=== PATIENT | female | born 1940 | race Caucasian/White ===

== ENCOUNTER → 2017-10-23 | Outpatient (CLI) | payer OTHER ==
[~2017-10-23] MED LIST: ANTIVERT12.5 MG PO; APAP500 PO; ASPIR 8181 MG PO; ATIVAN1 M1 PO; ATORVASTATIN CA10 MG; ATORVASTATIN CA10 MG PO; BACTRIM DS TAB1 EACH PO; BUSPIRONE; CELEXA20 MG PO; CELEXA40 MG OR; CELEXA40 MG PO; ELMIRON 100 MG100 M1 PO; HYDROXYZINE HCL10 M1 PO; HYDROXYZINE HCL25 M1; HYDROXYZINE HCL25 M1 OR; IBUPROFEN 200200 M1 PO; IRON325; IRON325 PO; LAMICTAL XR200 MG PO; LAMICTAL100 MG PO; LAMICTAL150 MG PO; LAMICTAL200 MG PO; LAMOTRIGINE150 MG OR; LIPITOR OR; LOSARTAN-HCTZ1 EAC2 PO; MOBIC OR; MOBIC15 MG PO; NAMENDA 10 MG T10 MG PO; NORCO 5-325 TA1 EACH PO; PRAMIPEXOLE D0.25 MG PO; PROAIR HFA8.5 GM PO; REQUIP1 MG PO; TRILEPTAL150 MG OR; TUMS PO; VIMPAT50 MG; ZIAC 5-6.25 MG1 EACH; ZONEGRAN100 MG OR; ZONEGRAN100 MG PO; ZONISAMIDE 100100 M1 PO; [UNRECOGNIZED DRUG - OTHER]
== END ==
LOC: ULTRA 01:36 → RAD 01:36 → ULTRA 09:46
DX: Z12.31 Encounter for screening mammogram for malignant neoplasm of breast (principal); N63.20 Unspecified lump in the left breast, unspecified quadrant; I10 Essential (primary) hypertension

== ENCOUNTER 2018-10-30 09:05 | Emergency (ER) | payer OTHER ==
[~2018-10-30] VITALS: Ht 167.6 cm; Wt 61.7 kg
[~2018-10-30 09:05] MED LIST changes: +MOBIC7.5 MG PO
[2018-10-30 11:39] VITALS: BP 157/41
== END 2018-10-30 12:10 | disposition home or self-care (01) ==
LOC: ER 09:05
DX: S16.1XXA Strain of muscle, fascia and tendon at neck level, initial encounter (principal); S00.03XA Contusion of scalp, initial encounter; M19.90 Unspecified osteoarthritis, unspecified site; G25.81 Restless legs syndrome; I10 Essential (primary) hypertension; Z86.73 Personal history of transient ischemic attack (TIA), and cerebral infarction without residual deficits; Z98.890 Other specified postprocedural states; Z88.0 Allergy status to penicillin; Z90.710 Acquired absence of both cervix and uterus; Z96.651 Presence of right artificial knee joint; Z96.642 Presence of left artificial hip joint; W18.39XA Other fall on same level, initial encounter; Y92.129 Unspecified place in nursing home as the place of occurrence of the external cause; Y93.89 Activity, other specified; Y99.8 Other external cause status

== ENCOUNTER 2020-05-24 10:09 | Emergency (ER) | payer OTHER ==
[~2020-05-24] VITALS: Ht 160 cm; Wt 53.1 kg
[2020-05-24] MEDS ORDERED: ARICEPT10 M1 PO (10:17)
[2020-05-24] MEDS ORDERED: ASA81BEC PO (10:17)
[2020-05-24] MEDS ORDERED: CATAPRES0.1 MG PO (10:18)
[2020-05-24] MEDS ORDERED: DORYX MPC120 MG PO (10:19)
[2020-05-24] MEDS ORDERED: LEXAPRO20 MG PO (10:19)
[2020-05-24] MEDS ORDERED: ESTRACE42.5 GM VAG (10:21)
[2020-05-24] MEDS ORDERED: FAMOTIDINE 40 M40 M1 PO (10:21)
[2020-05-24] MEDS ORDERED: REQUIP 0.25 M0.25 M1 PO (10:22)
[2020-05-24] MEDS ORDERED: MIRAPEX0.5 MG PO (10:22)
[2020-05-24] MEDS ORDERED: ACETAMINOPHEN500 M1 PO (10:23)
[2020-05-24] MEDS ORDERED: ZONEGRAN100 MG PO (10:24)
[2020-05-24] MEDS ORDERED: CALCIUM CARBON500 MG PO (10:25)
[2020-05-24] MEDS ORDERED: BUSPIRONE HCL5 MG PO (10:26)
[2020-05-24] MEDS ORDERED: BEANO300 UNIT PO (10:27)
[2020-05-24] MEDS ORDERED: REFRESH PLUS1 EACH OPHTHALMIC (10:27)
--- NOTE | 2020-05-24 10:33 | EKG ---
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 : 1940 Requested By: Destin Paulson Order Number: [id number] MD: Mandeep Miner Measurements Intervals [place] Rate: 57 P: 60 DE: 176 QRS: -14 QRSD: 78 T: 51 QT: 441 QTc: 430 Interpretive Statements Sinus rhythm Probable anteroseptal infarct, old Compared to ECG 01/04/2018 13:50:57 Myocardial infarct finding now present Left-axis deviation no longer present Electronically Signed On 05-24-2020 10:33:10 LEHR ATTENDANT by Mandeep Miner [email or web address] <ELECTRONICALLY SIGNED> By: Mandeep Miner MD, [facility] 05/24/20 1033 1025 1025 Mandeep Miner MD, FACC /EPI
[2020-05-24 10:36] LABS: ABSOLUTE NEUTROPHILS 2.6 thou/uL (1.4-8.2); BASOPHILS 0.7 % (0.0-2.0); EOSINOPHILS 4.4 % (0.0-3.0); HEMATOCRIT 41.6 % (37.0-47.0); HEMOGLOBIN 13.5 gm/dL (12.0-15.0); LYMPHOCYTES 25.3 % (24.0-44.0); MCH 32.1 pg (26.0-34.0); MCHC 32.5 g/dL (28.0-37.0); MCV 98.9 fL (80.0-100.0); MONOCYTES 12.2 % (1.0-8.0); PLATELET COUNT 207 thou/uL (150-400); POLYS 57.4 % (36.0-66.0); RDW 12.9 % (10.5-14.5); WBC 4.6 thou/uL (4.0-11.0)
[2020-05-24 10:44] LABS: URINE BILIRUBIN NEGATIVE (Negative); URINE BLOOD NEGATIVE (Negative); URINE CLARITY CLEAR; URINE COLOR YELLOW; URINE GLUCOSE-RANDOM* NEGATIVE (Negative); URINE KETONES NEGATIVE (Negative); URINE LEUKOCYTES-REFLEX NEGATIVE (Negative); URINE NITRITE-REFLEX NEGATIVE (Negative); URINE PROTEIN (DIPSTICK) NEGATIVE (Negative); URINE UROBILINOGEN 0.2 E.U./dl (0.2-1.0)
[2020-05-24 10:45] LABS: CALCIUM 9.2 mg/dL (8.5-10.1); CREATININE 1.1 mg/dL (0.6-1.0); POTASSIUM 3.8 mmol/L (3.5-5.1)
[2020-05-24 12:53] VITALS: BP 125/87
== END 2020-05-24 13:02 | disposition home or self-care (01) ==
LOC: ER 10:09
PROVIDERS: Emergency Medicine
DX: M62.838 Other muscle spasm (principal); I10 Essential (primary) hypertension; K21.9 Gastro-esophageal reflux disease without esophagitis; Z90.710 Acquired absence of both cervix and uterus; Z79.899 Other long term (current) drug therapy; Z79.82 Long term (current) use of aspirin; Z87.891 Personal history of nicotine dependence; Z88.0 Allergy status to penicillin